=== PATIENT | female | born 1990 | race Caucasian/White ===

== ENCOUNTER 2017-09-09 16:12 | Emergency (ER) | payer OTHER ==
[2017-09-09 16:24] VITALS: BP 118/89
--- NOTE | 2017-09-09 17:37 | EDM.PDOC ---
<Pearl Rudd - Last Filed: 09/09/17 18:09> ED HPI GENERAL MEDICAL PROBLEM - General Chief Complaint: Abdominal Pain Stated Complaint: pain lwer right side Time Seen by Provider: 09/09/17 17:20 - History of Present Illness INITIAL COMMENTS - FREE TEXT/NARRATIVE: Patient is a 27 year old female here with the complaint of right lower abdominal pain without radiation. She states the pain began when she woke up with morning and is dull in nature at baseline and sharp with movement or deep breathing and has worsened throughout the day. She rates the pain a 3/10 up to a 6/10 at times. She denies N/V, fever, chills, chest pain, SOB. She has no pain with urination and her last bowel movement was this afternoon. Today is her last day of her menstrual cycle. She does have a history of ovarian cysts. No other abdominal surgeries. She denies family history of appendix or gallbladder dysfunction. She has not taken anything for the pain and takes no chronic medications. - Related Data Allergies Allergy/AdvReac Type Severity Reaction Status Date / Time No Known Allergies Allergy Verified 09/09/17 16:24 Home Meds: Home Meds . [No Known Home Meds] 09/09/17 [History] ED ROS GENERAL - Review of Systems Constitutional: Reports: No Symptoms, Decreased Appetite. Denies: Fever, Chills Respiratory: Reports: No Symptoms. Denies: Shortness of Breath Cardiovascular: Reports: No Symptoms. Denies: Chest Pain GI/Abdominal: Reports: Abdominal Pain, Decreased Appetite, Nausea. Denies: Bloody Stool, Constipation, Diarrhea, Vomiting Musculoskeletal: Denies: Shoulder Pain Neurological: Denies: Headache, Numbness, Tingling ED EXAM, GI/ABD - Physical Exam Exam Limited By: No Limitations General Appearance: Alert, No Apparent Distress Throat/Mouth: Normal Inspection Respiratory/Chest: No Respiratory Distress, Lungs Clear, Normal Breath Sounds, No Accessory Muscle Use GI/Abdominal Exam: Normal Bowel Sounds, Soft, No Distention, No Mass, Rebound, Tender (R), Other (positive McBurneys point, positive Obturator and psoas signs) . No: Distended, Guarding Neurological: Alert, Oriented Psychiatric: Normal Affect, Normal Mood Course - Vital Signs Last Recorded V/S: Last Vital Signs Temp 98.5 F 09/09/17 16:22 Pulse 83 02/28/18 16:22 Resp 16 09/09/17 16:22 BP 118/89 09/09/17 16:22 Pulse Ox 100 09/09/17 16:22 - Orders/Labs/Meds Orders: Active Orders 24 hr Category Date Time Status Sodium Chloride 0.9% [Saline Flush] Med 09/09/17 18:51 Active 10 ml FLUSH ONETIME PRN Medication Orders Sodium Chloride (Saline Flush) 10 ml FLUSH ONETIME PRN PRN Reason: Keep Vein Open Last Admin: 09/09/17 19:03 Dose: 10 ml Labs: Laboratory Tests 09/09/17 09/09/17 09/09/17 Range/Units 16:35 16:35 16:35 WBC 10.33 H (3.98-10.04) K/mm3 RBC 4.39 (3.98-5.22) M/mm3 Hgb 12.7 (11.2-15.7) gm/L Hct 38.8 (34.1-44.9) % MCV 88.4 (79.4-94.8) fl MCH 28.9 (25.6-32.2) pg MCHC 32.7 (32.2-35.5) g/dl RDW Std Deviation 42.9 (36.4-46.3) fL Plt Count 305 (182-369) K/mm3 MPV 10.1 (9.4-12.3) fl Neutrophils % (Manual) 61 H (40-60) % Band Neutrophils % 0 (0-10) % Lymphocytes % (Manual) 34 (20-40) % Atypical Lymphs % 0 % Monocytes % (Manual) 4 (2-10) % Eosinophils % (Manual) 1 (0.7-5.8) % Basophils % (Manual) 0 L (0.1-1.2) Platelet Estimate Adequate RBC Morph Comment Normal Sodium 137 (136-145) mEq/L Potassium 4.0 (3.5-5.1) mEq/L Chloride 103 (98-107) mEq/L Carbon Dioxide 24 (21-32) mEq/L Anion Gap 14.0 (5-15) BUN 16 (7-18) mg/dL Creatinine 0.9 (0.55-1.02) mg/dL Est Cr Clr Drug Dosing 81.08 mL/min Estimated GFR (MDRD) > 60 (>60) mL/min BUN/Creatinine Ratio 17.8 (14-18) Glucose 95 (74-106) mg/dL Calcium 9.1 (8.5-10.1) mg/dL Total Bilirubin 0.2 (0.2-1.0) mg/dL AST 16 (15-37) U/L ALT 15 (14-59) U/L Alkaline Phosphatase 56 (46-116) U/L C-Reactive Protein < 0.2 (<1.0) mg/dL Total Protein 7.6 (6.4-8.2) g/dl Albumin 4.2 (3.4-5.0) g/dl Globulin 3.4 gm/dL Albumin/Globulin Ratio 1.2 (1-2) Urine Color Light yellow (Yellow) Urine Appearance Clear (Clear) Urine pH 6.5 (5.0-8.0) Ur Specific [place] 1.010 (1.005-1.030) Urine Protein Negative (Negative) Urine Glucose (UA) Negative (Negative) Urine Ketones Negative (Negative) Urine Occult Blood Trace-lysed H (Negative) Urine Nitrite Negative (Negative) Urine Bilirubin Negative (Negative) Urine Urobilinogen 0.2 (0.2-1.0) Ur Leukocyte Esterase Negative (Negative) Urine RBC 0-5 (0-5) /hpf Urine WBC 0-5 (0-5) /hpf Ur Epithelial Cells 0-5 (0-5) /hpf Urine Bacteria Few (FEW) /hpf Urine Mucus Not seen (FEW) /hpf Urine HCG, Qual (NEGATIVE) 09/09/17 Range/Units 16:35 WBC (3.98-10.04) K/mm3 RBC (3.98-5.22) M/mm3 Hgb (11.2-15.7) gm/L Hct (34.1-44.9) % MCV (79.4-94.8) fl MCH (25.6-32.2) pg MCHC (32.2-35.5) g/dl RDW Std Deviation (36.4-46.3) fL Plt Count (182-369) K/mm3 MPV (9.4-12.3) fl Neutrophils % (Manual) (40-60) % Band Neutrophils % (0-10) % Lymphocytes % (Manual) (20-40) % Atypical Lymphs % % Monocytes % (Manual) (2-10) % Eosinophils % (Manual) (0.7-5.8) % Basophils % (Manual) (0.1-1.2) Platelet Estimate RBC Morph Comment Sodium (136-145) mEq/L Potassium (3.5-5.1) mEq/L Chloride (98-107) mEq/L Carbon Dioxide (21-32) mEq/L Anion Gap (5-15) BUN (7-18) mg/dL Creatinine (0.55-1.02) mg/dL Est Cr Clr Drug Dosing mL/min Estimated GFR (MDRD) (>60) mL/min BUN/Creatinine Ratio (14-18) Glucose (74-106) mg/dL Calcium (8.5-10.1) mg/dL Total Bilirubin (0.2-1.0) mg/dL AST (15-37) U/L ALT (14-59) U/L Alkaline Phosphatase (46-116) U/L C-Reactive Protein (<1.0) mg/dL Total Protein (6.4-8.2) g/dl Albumin (3.4-5.0) g/dl Globulin gm/dL Albumin/Globulin Ratio (1-2) Urine Color (Yellow) Urine Appearance (Clear) Urine pH (5.0-8.0) Ur Specific [place] (1.005-1.030) Urine Protein (Negative) Urine Glucose (UA) (Negative) Urine Ketones (Negative) Urine Occult Blood (Negative) Urine Nitrite (Negative) Urine Bilirubin (Negative) Urine Urobilinogen (0.2-1.0) Ur Leukocyte Esterase (Negative) Urine RBC (0-5) /hpf Urine WBC (0-5) /hpf Ur Epithelial Cells (0-5) /hpf Urine Bacteria (FEW) /hpf Urine Mucus (FEW) /hpf Urine HCG, Qual Negative (NEGATIVE) Meds: Medications Generic Name Dose Route Start Last Admin Trade Name Freq PRN Reason Stop Dose Admin Sodium Chloride 10 ml 09/09/17 18:51 09/09/17 19:03 Saline Flush FLUSH 10 ml ONETIME PRN Administration Keep Vein Open Discontinued Medications Generic Name Dose Route Start Last Admin Trade Name Freq PRN Reason Stop Dose Admin Diatrizoate Meglum/Diatrizoate Sod 120 ml 09/09/17 18:51 09/09/17 19:02 Gastrografin 37% PO 09/09/17 18:52 90 ml ONETIME ONE Administration Sodium Chloride 1,000 mls @ 999 mls/hr 09/09/17 17:39 09/09/17 17:57 Normal Saline IV 09/09/17 18:39 999 mls/hr ONETIME ONE Administration Iopamidol 125 ml 09/09/17 18:51 09/09/17 19:01 Isovue-300 (61%) IVPUSH 09/09/17 18:52 125 ml ONETIME ONE Administration Departure - Departure Disposition: Home, Self-Care 01 Clinical Impression: Right lower quadrant pain - Discharge Information Referrals: Jojo Caldwell PA-C [Primary Care Provider] - Forms: ED Department Discharge Additional Instructions: You were evaluated in the emergency room today for pain in your right lower quadrant of your abdomen. Your tests were inconclusive. No true abnormality was found but unable to fully rule out appendicitis. You will be discharged home, you will monitor your symptoms very closely. If you should have increasing pain fever greater than 101F you will need to follow-up with your PCP immediately or return to the emergency room. Otherwise follow-up with her PCP within the next 5-7 days. 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 Did have normal bowel movement this afternoon, appetite good and has been snacking today "too much" without difficulty. I agree with remainder of above HPI. 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 Denies: Decreased Appetite, Nausea Musculoskeletal: Reports: No Symptoms Skin: Reports: No Symptoms ED EXAM, GI/ABD - Physical Exam Exam: See Below Throat/Mouth: Normal Inspection, Normal Oropharynx Head: Atraumatic, Normocephalic Neck: Normal Inspection, Supple, Non-Tender GI/Abdominal Exam: Tender (Tenderness to McBurney point), Other (positive [place] sign, positive Obturator and psoas signs) Course - Orders/Labs/Meds Meds: Medications Generic Name Dose Route Start Last Admin Trade Name Freq PRN Reason Stop Dose Admin Sodium Chloride 10 ml 09/09/17 18:51 09/09/17 19:03 Saline Flush FLUSH 10 ml ONETIME PRN Administration Keep Vein Open Discontinued Medications Generic Name Dose Route Start Last Admin Trade Name Freq PRN Reason Stop Dose Admin Diatrizoate Meglum/Diatrizoate Sod 120 ml 09/09/17 18:51 09/09/17 19:02 Gastrografin 37% PO 09/09/17 18:52 90 ml ONETIME ONE Administration Sodium Chloride 1,000 mls @ 999 mls/hr 09/09/17 17:39 09/09/17 17:57 Normal Saline IV 09/09/17 18:39 999 mls/hr ONETIME ONE Administration Iopamidol 125 ml 09/09/17 18:51 09/09/17 19:01 Isovue-300 (61%) IVPUSH 09/09/17 18:52 125 ml ONETIME ONE Administration - Re-Assessments/Exams Free Text/Narrative Re-Assessment/Exam: Patient with mild to moderate right lower quadrant pain on exam. She does not appear acutely ill. She declines any pain medication. CT demonstrates very slight inflammatory changes near the cecum and appendix is not visualized. WBC is 10,330 with 61% neutrophils and no bands. CRP less than 0.2. UA is negative. HCG is negative. CMP is unremarkable. Unable to fully rule out early appendicitis but unable to confirm at this time either. Patient not acutely ill and pain is minimal, will discharge home and monitor. Advised patient if she should have any worsening of pain, any fever or change in symptoms then she is to be followed up by her PCP or certainly return to the emergency room and patient was understanding of this. Portions of history of present illness/ROS/physical exam were documented by PA student. All were reviewed by myself and I agree with her documentation. 09/09/17 20:07 09/09/17 20:09 09/09/17 20:12 Departure - Departure Time of Disposition: 20:10 Condition: Good - My Orders Last 24 Hours: My Active Orders 09/09/17 18:51 Sodium Chloride 0.9% [Saline Flush] 10 ml FLUSH ONETIME PRN - Assessment/Plan Last 24 Hours: My Active Orders 09/09/17 18:51 Sodium Chloride 0.9% [Saline Flush] 10 ml FLUSH ONETIME PRN
[2017-09-09] MEDS: Sodium Chloride 0.9% 1,000 ML IV ONE (17:57)
[2017-09-09] MEDS: Iopamidol 612 MG/ML 150 ML Bottle IVPUSH ONE (19:01)
[2017-09-09] MEDS: Diatrizoate Meglumine/Diatrizoate Sodium 37% 120 ML Bottle PO ONE (19:02)
[2017-09-09] MEDS: Sodium Chloride 0.9% 10 ML Syringe FLUSH PRN (19:03)
--- NOTE | 2017-09-09 19:31 | CT ---
CT abdomen and pelvis Technique: Multiple axial sections were obtained from above the dome of the diaphragm inferiorly through the pubic symphysis. Intravenous and oral contrast was utilized. Delayed images were also obtained through the bladder. Comparison: No prior CT study is available. Findings: Very slight inflammatory change suggested near the cecum. Appendix cannot be definitely visualized. Visualized lung bases are clear. Liver shows no focal abnormality. Spleen appears within normal limits. Adrenal glands show no nodule. Pancreas is within normal limits. Kidneys show symmetric contrast enhancement without hydronephrosis or mass. Aorta shows no aneurysmal dilatation. No retroperitoneal adenopathy or mesenteric abnormalities are seen. No pelvic mass or adenopathy is identified. Delayed images shows contrast within the ureters and bladder. No free fluid is seen. No bowel dilatation is appreciated. Bone window settings were reviewed which appears within normal limits for the patient's age. Impression: 1. Very slight inflammatory change suggested near the of cecum. Appendix is not visualized. Findings could represent change from early appendicitis but difficult to confirm with a nonvisualized appendix. Please correlate if patient has elevated white count and clinical symptoms of appendicitis. If any clinical questions remain, follow-up study could be obtained in 24 hours. 2. No additional abnormality is identified on CT study of the abdomen and pelvis. Diagnostic code #3
== END 2017-09-09 20:20 | disposition home or self-care (01) ==
LOC: JD.ED 16:12
DX: R10.31 Right lower quadrant pain (principal)
CPT/HCPCS: 36415; 74177; 80053; 81001; 81025; 85025; 86140; 96360; 99284; J7040; J7050; Q9963; Q9967